=== PATIENT | male | born 1955 | race Caucasian/White ===

== ENCOUNTER 2018-03-14 17:20 | Emergency (ER) | payer MEDICAID ==
[~2018-03-14] VITALS: Ht 190.5 cm; Wt 140.0 kg
--- NOTE | 2018-03-14 17:44 | NUR ---
PT'S MOTHER WAS CALLED AND NOTIFIED OF BY DR BAUGH. MOTHER Rebecca ROD: PARENTS WOULD LIKE PT TO GO TO [facility]; PT IS TO BE CREAMTED AT PARENTS REQUEST. PARENTS HAVE GIVEN THEIR PERMISSION FOR ORGAN DONATION PARENTS INFORMED THAT [facility] WOULD BE CALLED AND THAT PT'S BELONGINGS WILL BE T[facility] OVER TO [facility] WHEN THEY ARRIVE. FATHER MAKES MENTION THAT PT HAS A LARGE GOLD RING THAT THEY ARE CONCERNED ABOUT. THEY WERE INFORMED THAT THE RING COULD NOT BE REMOVED FROM PT'S HAND AT THIS TIME AND THAT WHEN THE [facility] EXAM WAS COMPLETED THE PT'S BELONGINGS WOULD BE RETUNED TO NEXT OF [facility]. FAMILY STATED UDERSTANDING. PARENTS ADDRESS: [address] [place] [address]; [place] [address] [phone]; [place] [phone]
--- NOTE | 2018-03-14 17:52 | NUR ---
called to [facility] after hours number. dispatch stated will contact manager channel and will call back.
--- NOTE | 2018-03-14 18:14 | NUR ---
spoke with trust and estates paralegal roge. ok to release body and belongings to [facility]. called [facility], reference number [id number]. Called Dalton, currently driving stated will call back.
--- NOTE | 2018-03-14 18:21 | NUR ---
pt has gold colored ring on left hand. will leave in place for transport to [place]. charge nurse Yolis and carlitos barfield aware.
--- NOTE | 2018-03-14 18:27 | NUR ---
FAMILY WAS CALLED AND NOTIFIED THAT THE CORNER HAS RELEASED THE PT'S BODY TO [facility] AND THAT PT'S BELONGINGS WILL BE ACCOMPANY HIM, THAT THEY CAN CONTROLLED AREA CHECKER PT'S BELONGINGS WHEN THEY GO TO [facility] AT THEIR CONVIENCE
--- NOTE | 2018-03-14 18:45 | NUR ---
post-mortem care completed.
--- NOTE | 2018-03-14 19:10 | NUR ---
Rec'd call from "Cornel" at [facility], information endorsed, will be here for remains.
--- NOTE | 2018-03-14 20:03 | NUR ---
home here, remains released
== END 2018-03-14 20:04 | disposition expired ==
LOC: ER 17:21
DX: I46.9 Cardiac arrest, cause unspecified (principal)
CPT/HCPCS: 31500; 92950; 99285